=== PATIENT | female | born 2000 | race Caucasian/White ===

== ENCOUNTER 2022-12-22 09:40 | Outpatient (CLI) | payer BC, SELFPAY ==
--- NOTE | 2022-12-22 11:02 | ECHO_ITS ---
Patient Info Name: Tracy Malik Age: 22 years : 2000 Gender: Female Ht: 65 in Wt: 155 lbs BSA: 1.81 m2 HR: 81 bpm BP: 105 / 66 mmHg Technical Quality: Good Exam Date: 12/22/2022 10:22 AM Exam Location: [facility] [place] Patient Status: Outpatient Admit Date: 12/22/2022 Staff Ordering Physician: Bhargavi Fernandez NP [employer] Deliverer: Maryann Pierre RDCS Attending Provider: Bhargavi Fernandez NP Exam Type: CA echo doppler color flow Study Info Complete two-dimensional, color flow and Doppler transthoracic echocardiogram is performed. Summary 1. Complete two-dimensional, color flow and Doppler transthoracic echocardiogram is performed. 2. Left ventricular chamber dimension is normal. 3. Left ventricular systolic function is normal, estimated at 60-65%. 4. The left ventricular diastolic function is normal. 5. E/e' 6 is not elevated. 6. There is trace tricuspid valve regurgitation. 7. No pulmonary hypertension, estimated pulmonary arterial systolic pressure is 33 mmHg. 8. There is trace pulmonic regurgitation. Left Ventricle E/e' 6 is not elevated. Left ventricular chamber dimension is normal. Left ventricular systolic function is normal, estimated at 60-65%. The left ventricular diastolic function is normal. Right Ventricle Right ventricular systolic function is normal and with normal TAPSE 2.5 cm. Right ventricular chamber dimension is normal. Left Atria Left atrial chamber dimension is normal. Right Atria Right atrial chamber dimension is normal. Aortic Valve The aortic valve is trileaflet. There is no aortic valve stenosis. There is no aortic valve regurgitation. Pulmonic Valve There is trace pulmonic regurgitation. Mitral Valve There is no mitral valve stenosis. There is no mitral valve regurgitation. Tricuspid Valve There is trace tricuspid valve regurgitation. No pulmonary hypertension, estimated pulmonary arterial systolic pressure is 33 mmHg. Pericardium/Pleural There is no pericardial effusion. Inferior Vena Cava Normal inferior vena cava with >50% collapse upon inspiration consistent with normal right atrial pressure, 5 mmHg. Aorta The aortic root size at the sinus of Valsalva is normal. Left Ventricular Outflow Tract Name Value Normal LVOT 2D LVOT Diameter 2.0 cm LVOT Doppler LVOT Peak Gradient 5 mmHg LVOT Mean Gradient 3 mmHg LVOT VTI 20 cm LVOT VTI/AV VTI Ratio 0.9 LVOT Stroke Volume 62 ml LVOT CO 14.6 l/min LVOT CI 8.1 l/min/m2 Pulmonic Valve Name Value Normal PV Doppler PV Peak Gradient 4 mmHg PV Regurgitation Doppler
--- NOTE | 2022-12-24 14:55 | WPDHOLTEREM ---
Holter/Event Monitor Holter/Event Monitor Date of procedure: 12/22/22 Holter/Event Procedure: 48 Hr Holter Monitor Indications: Palpitations Conclusion: 1. 48 hour holter monitor on 12/22/22. 2. Underlying rhythm is sinus rhythm. HR range 40-169 bpm; average HR 73 bpm. HR at 40 bpm was at 05:44. HR at 169 bpm was at 10:10. 3. There is 1 premature supraventricular complex. No supraventricular tachycardia. 4. No premature ventricular complexes. No ventricular tachycardia. 5. No sinoatrial or atrioventricular blocks. No significant pauses greater than 2 seconds. 6. Patient reports symptoms of chest pain, fluttering, shortness of breath which demonstrate sinus rhythm, HR range 65-94 bpm.
== END 2022-12-22 09:41 | disposition home or self-care (01) ==
LOC: ANHCARD 09:41
PROVIDERS: PCP Internal Medicine; Visit Provider Nurse Practitioner
DX: R00.2 Palpitations (principal); R07.89 Other chest pain
CPT/HCPCS: 93225; 93226; 93306

== ENCOUNTER 2023-07-05 10:46 | Emergency (ER) | payer BC, SELFPAY ==
--- NOTE | ~2023-07-05 | XR_ITS ---
EXAMINATION: XR foot LT min 3V DATE: 07/05/2023 11:07 INDICATION: Stepped on glass one week prior. Assess for retained foreign body. TECHNIQUE: Dorsoplantar, two oblique and lateral views of the left foot were obtained. COMPARISON: None. FINDINGS: Fourth metatarsal a small nabothian length and diaphyseal diameter suggesting this is developmental. Postoperative change of prior bunionectomy and realignment osteotomy with with screw fixation at the neck of the first metatarsal. Cerclage wire likely for additional realignment osteotomy at the medial side of the neck of the first proximal phalanx. No fracture. 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 Soft tissues are unremarkable. N o radiopaque foreign bodies identified. IMPRESSION: 1. Screw and cerclage wire associated prior surgery to the first ray as detailed above. No abnormal r adiopaque foreign bodies identified. Reviewed, dictated and finalized at location A. IMPRESSION: 1. Screw and cerclage wire associated prior surgery to the first ray as detaile d above. No abnormal radiopaque foreign bodies identified.
[2023-07-05 10:47] VITALS: BP 124/67; PULSE 92; RESP 16; TEMP 36.9; O2SAT 99
--- NOTE | 2023-07-05 10:58 | ED.GENADULT ---
HPI - General Adult General Chief complaint: Extremity Injury, Lower Stated complaint: glass in foot Time Seen by Provider: 07/05/23 10:51 Source: patient Mode of arrival: ambulatory Limitations: no limitations History of Present Illness HPI narrative: This is a 22-year-old female who presents to the ED with chief complaint of some foreign body in the left foot. Patient states a week ago she accidentally broke a michaela jar and stepped on a piece of glass. She states her foot has been bothering her ever since and she is concerned that there may be glass in the foot. She denies any further site of pain or injury. Denies any numbness or weakness. Denies redness or drainage. Related Data Home Medications Medication Instructions Recorded Confirmed cholecalciferol (vitamin D3) 125 125 mcg PO DAILY 04/23/22 06/29/23 mcg (5,000 unit) capsule Allergies Allergy/AdvReac Type Severity Reaction Status Date / Time latex AdvReac Mild Rash Verified 07/05/23 10:50 Review of Systems Review of Systems: All systems as dictated in [facility] Past Medical History Medical History (Updated 07/05/23 @ 11:29 by Santos Soler PA-C) Psoriatic arthritis Surgical History Surgical History History of bunionectomy [place] teeth removed Social History Social History Smoking status: Never smoker Alcohol intake: current Alcohol use details: Socially Lack of Transportation: No Lack of Food: Never True Current Housing: I Have Housing Concerned About Future Housing: No Difficulty Paying Gas/Electric Bills: No Difficulty Paying for Meds: No Currently Unemployed: No Education: Bachelor's Degree Difficulty w/ Childcare or Family Care: No Living arrangements: with family Exam Narrative: GENERAL: Well-appearing, well-nourished, and in no acute distress. HEAD: Normocephalic, atraumatic. EYES: PERRLA and EOMI. ENT: Nares clear, no rhinorrhea or epistaxis. Mucous membranes moist. Oropharynx without tonsillar hypertrophy exudate or other lesions. NECK: Supple. No adenopathy or masses. CHEST: No respiratory distress. Clear to auscultation. No wheezes rales or rhonchi HEART: Regular rate and rhythm. No murmur heard. Normal peripheral pulses. ABDOMEN: Soft, nontender, nondistended, normal active bowel sounds. MSK: Normal range of motion. No edema. SKIN: 3 mm old healed wound to the plantar aspect of the left foot distally. No redness or drainage. Minimal tenderness. Warm, dry, no rash. NEURO: Alert and oriented x3. No focal deficits. PSYCH: Normal mood and affect. Course Vital Signs Vital signs: Vital Signs Temperature 98.5 F 07/05/23 10:47 Pulse Rate 92 07/05/23 10:47 Respiratory Rate 16 07/05/23 10:47 Blood Pressure 124/67 07/05/23 10:47 Pulse Oximetry 99 07/05/23 10:47 Oxygen Delivery Room Air 07/05/23 10:47 Temperature 98.5 F 07/05/23 10:47 Pulse Rate 92 07/05/23 10:47 Respiratory Rate 16 07/05/23 10:47 Blood Pressure 124/67 07/05/23 10:47 Pulse Oximetry 99 07/05/23 10:47 Oxygen Delivery Room Air 07/05/23 10:47 Medical Decision Making MDM Narrative Medical decision making narrative: This is a 22-year-old female who presents to the ED with chief complaint of left foot pain. She is concerned for glass stuck in the foot after an injury 1 week ago. Vitals are normal. Exam is benign. No evidence of any infection. X-rays are negative for any foreign body. Pt will be discharged in stable condition. Return precautions given and supportive measures discussed. Pt is understanding and agreeable with plan for discharge and follow-up with PCP. Vital Signs Vital Signs: Vital Signs Temperature 98.5 F 07/05/23 10:47 Pulse Rate 92 07/05/23 10:47 Respiratory Rate 16 07/05/23 10:47 Blood Pressure 124/67 07/05/23 10:47 Pulse Ox
== END 2023-07-05 11:44 | disposition home or self-care (01) ==
LOC: ANHED 11:38
PROVIDERS: Emergency Provider Physician Assistant; PCP Internal Medicine
DX: M79.672 Pain in left foot (principal); L40.50 Arthropathic psoriasis, unspecified
CPT/HCPCS: 73630; 99281; 99283

== ENCOUNTER 2024-04-23 12:59 | Outpatient (CLI) | payer BC, SELFPAY ==
--- NOTE | ~2024-04-23 | US_ITS ---
Thyroid ultrasound. Clinical History: Thyroid nodule Findings: Real-time sonography of the thyroid gland was performed. The right lobe measures 5.1 x 1.1 x 1.2 cm. The left lobe measures 4.4 x 1.1 x 1.6 cm. The isthmus is 3 mm in AP diameter. There is a 7 mm isoechoic solid nodule at the left mid to lower pole. Impression: 7 mm TR-3 nodule left lobe. Given size, no further follow-up required.. Reviewed, dictated and finalized at location M. Impression: 7 mm TR-3 nodule left lobe. Given size, no further follow-up required..
== END 2024-04-23 13:00 ==
LOC: GOSHIMG 13:01
PROVIDERS: PCP Internal Medicine; Visit Provider Internal Medicine Rheumatology
DX: E04.1 Nontoxic single thyroid nodule (principal)
CPT/HCPCS: 76536